=== PATIENT | male | born 1955 | race Caucasian/White ===

== ENCOUNTER → 2017-05-20 | Outpatient (CLI) | payer OTHER ==
[~2017-05-20] MED LIST: ACETAMINOPHEN650 M5 PO; ADVAIR 250-501 EACH INH; ASPIR 8181 MG PO; DUONEB 2.5-0.5 M3 ML INH; LISINOPRIL40 MG PO; LOPRESSOR25 PO; MUCINEX TA600 MG/TA2 PO; NICOTINE TRANSD14 M1 TD; NORVASC 5 MG TAB5 MG PO; PACERONE 200 M200 M1 PO; PREDNISOLONE 5 M5 MG; PREDNISONE 10 M10 M1 PO; PROAIR HFA8.5 GM INH; SIMVASTATIN20 MG PO; SIMVASTATIN5 MG PO; SPIRIVA INH; SYMBICORT160 MCG/4. INH; TOPROL XL50 MG PO; TYLENOL325 MG PO
--- NOTE | ~2017-05-20 | 2DMMODE ---
[facility] [employer] [place] [address] 2 D/M-MODE ECHOCARDIOGRAM Name: RAMY GIBSON Room #: REG [facility]#: [id number] Admission: 05/20/17 Attend Phys: Moises Acevedo, Discharge: Date of : 55 Date of Service: 05/20/17 1252 Report #: [id number] THIS REPORT FOR: //name// APPROVED REPORT Study performed: 05/20/2017 10:05:54 EXAM: Comprehensive 2D, Doppler, and color-flow Echocardiogram Patient Location: Out-Patient Room #: Echo lab Status: routine Other Information Study Quality: Good Indications COPD Hypertension/HDD SVT. 2D Dimensions RVDd: 42.10 mm LVEF(%): 65.60 (>50%) IVSd: 11.21 (7-11mm) LVOT Diam: 22.70 (18-24mm) LVDd: 51.72 mm PWd: 10.48 (7-11mm) LVDs: 32.96 (25-40mm) Aortic Root: 33.83 mm IVC: 28.00 mm Ding's LVEF: 65.60 % Volumes Left Atrial Volume (Systole) Single Plane 4CH: 46.23 mL Single Plane 2CH: 47.75 mL LA ESV Index: 27.00 mL/m2 Aortic Valve AoV Peak Amadou.: 1.39 m/s AO Peak Gr.: 7.69 mmHg LVOT Max P.06 mmHg LVOT Max V: 1.01 m/s AMRITA Vmax: 2.94 cm2 Mitral Valve E/A Ratio: 1.8 MV Decel. Time: 242.12 ms MV E Max Amadou.: 0.82 m/s MV A Amadou.: 0.45 m/s [facility] [place] [place] [address] 2 D/M-MODE ECHOCARDIOGRAM Name: RAMY GIBSON Room #: REG [facility]#: [id number] Admission: 05/20/17 Attend Phys: Moises Acevedo, Discharge: Date of : 55 Date of Service: 05/20/17 1252 Report #: [id number] MV PHT: 70.21 ms IVRT: 96.89 ms Pulmonary Valve PV Peak Amadou.: 0.84 m/s PV Peak Gr.: 2.82 mmHg Pulmonary Vein P Vein S: 0.46 m/s P Vein A: 0.22 m/s P Vein D: 0.39 m/s P Vein A Dur.: 106.1 msec P Vein S/D Ratio: 1.18 Tricuspid Valve TR Peak Amadou.: 2.48 m/s RAP Estimate: 10.00 mmHg TR Peak Gr.: 24.63 mmHg PA Pressure: 35.00 mmHg Left Ventricle The left ventricle is normal size. Very mild inferior hypokinesis, and normal wallmotion in other segments Mild concentric left ventricular hypertrophy. The left ventricular systolic function is normal. The left ventricular ejection fraction is within the normal range. LVEF is 50-55%. The left ventricular diastolic function is normal. Right Ventricle Right ventricle is at the upper limits of normal. The right ventricular systolic function is normal. Atria The left atrium size is normal. Right atrium is mildly dilated. Aortic Valve The aortic valve is normal in structure. No aortic regurgitation is present. There is no aortic valvular stenosis. Mitral Valve The mitral valve is normal in structure. There is no mitral valve regurgitation noted. No evidence of mitral valve stenosis. Tricuspid Valve The tricuspid valve is normal in structure. There is trace to mild tricuspid regurgitation. The right atrial pressure is estimated at 10 mmHg. There is mild pulmonary hypertension with an estimated PAP of 35 mmHg. [facility] [address] [place] [address] 2 D/M-MODE ECHOCARDIOGRAM Name: RAMY GIBSON Room #: REG [facility]#: [id number] Admission: 05/20/17 Attend Phys: Moises Acevedo, Discharge: Date of : 55 Date of Service: 05/20/17 1252 Report #: [id number] Pulmonic Valve The pulmonary valve is normal in structure. There is no pulmonic valvular regurgitation. Great Vessels The aortic root is normal in size. IVC is dilated and collapses >50% with inspiration. Pericardium There is no pericardial effusion. <Conclusion> The left ventricular systolic function is normal. LVEF is 50-55% Very mild inferior hypokinesis, and normal wall motion in other segments. No aortic regurgitation is present. There is no aortic valvular stenosis. There is no mitral valve regurgitation noted. No evidence of mitral valve stenosis. There is trace to mild tricuspid regurgitation. The right atrial pressure is estimated at 10 mmHg. There is mild pulmonary hypertension with an estimated PAP of 35 mmHg. <ELECTRONICALLY SIGNED> By: Moises Acevedo MD, FACC 05/20/17 1252 1252 1252 Moises Acevedo MD, FACC /INF
== END ==
LOC: CV 07:14
DX: I27.2 Other secondary pulmonary hypertension (principal); J44.9 Chronic obstructive pulmonary disease, unspecified; I47.1 Supraventricular tachycardia

== ENCOUNTER 2017-06-29 20:16 | Inpatient (IN) | payer OTHER ==
[~2017-06-29] VITALS: Ht 177.8 cm; Wt 80.7 kg
--- NOTE | ~2017-06-29 | EKG ---
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 No gross differences Electronically Signed On 06-30-2017 8:29:37 CDT by Arnav Adrian [email or web address] <ELECTRONICALLY SIGNED> By: Arnav Adrian MD, [facility] 06/30/17 0829 16 16 Arnav Adrian MD, [facility] /EPI
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
[2017-06-29 21:00] LABS: ABG SAMPLE TYPE ARTERIAL; BE(vivo) 1.3 mmol/L (-2 to +3); HCO3 30.7 mmol/L (22.0-26.0); LACTATE 1.22 mmol/L (0.5-2.0); O2(CT) 24.6 mL/dL (15.0-23.0); PCO2 67.7 mmHg (35.0-45.0); PO2 191.6 mmHg (80.0-100.0); pH 7.274 (7.360-7.450); sO2 99.1 % (92.0-98.0); tCO2 32.7 mmol/L (24.0-30.0)
[2017-06-29 21:01] LABS: Pressure Support 10 cm H20; STICK SITE R.RADIAL
[2017-06-29 22:12] LABS: ABG SAMPLE TYPE ARTERIAL; BE(vivo) 1.6 mmol/L (-2 to +3); HCO3 30.9 mmol/L (22.0-26.0); LACTATE 1.46 mmol/L (0.5-2.0); O2(CT) 24.1 mL/dL (15.0-23.0); O2Hb 95.9 % (92.0-98.0); PCO2 67.2 mmHg (35.0-45.0); PO2 123.6 mmHg (80.0-100.0); STICK SITE R.RADIAL; pH 7.281 (7.360-7.450); sO2 97.9 % (92.0-98.0)
[2017-06-29 22:13] LABS: HEMATOCRIT 48.9 % (42.0-52.0); HEMOGLOBIN 16.5 gm/dL (14.0-18.0); MCHC 33.9 g/dL (28.0-37.0); MCV 100.5 fL (80.0-100.0); PLATELET COUNT 201 thou/uL (150-400); RBC 4.86 mil/uL (4.50-6.00); RDW 12.8 % (10.5-14.5); WBC 13.3 thou/uL (4.0-11.0)
[2017-06-29 22:13] LABS: Pressure Support 9 cm H20
[2017-06-29 22:15] LABS: MANUAL DIFF YES
[2017-06-29 22:23] LABS: ANION GAP 7 mmol/L (7-16); BUN 20 mg/dL (7-18); CALCIUM 9.3 mg/dL (8.5-10.1); CHLORIDE 101 mmol/L (98-107); CO2 31 mmol/L (21-32); GLUCOSE 143 mg/dL (74-106); POTASSIUM 4.4 mmol/L (3.5-5.1); SODIUM 139 mmol/L (136-145)
[2017-06-29 22:27] LABS: APTT 22.4 Seconds (24.5-32.8); PROTIME 9.8 Seconds (9.3-11.4)
[2017-06-29 22:30] LABS: ALBUMIN 3.8 g/dL (3.4-5.0); ALKALINE PHOSPHATASE 71 U/L (46-116); MAGNESIUM 2.3 mg/dL (1.8-2.4); SGOT 14 U/L (15-37); SGPT 16 U/L (30-65); TOTAL BILIRUBIN 0.7 mg/dL (<0.1-1.0); TOTAL PROTEIN 7.2 g/dL (6.4-8.2); TROPONIN-I < 0.04 ng/mL (<0.04-0.07)
[2017-06-29 22:38] LABS: ABSOLUTE NEUTROPHILS 11.7 thou/uL (1.4-8.2); ANISOCYTOSIS 1+; TOTAL CELL COUNT 100
[2017-06-30] VITALS (18 sets, daily range): BP systolic 105–147; BP diastolic 83–104
[2017-06-30 09:16] LABS: ABG SAMPLE TYPE ARTERIAL; BE(vivo) 3.4 mmol/L (-2 to +3); HCO3 30.4 mmol/L (22.0-26.0); LACTATE 1.81 mmol/L (0.5-2.0); O2(CT) 21.3 mL/dL (15.0-23.0); O2Hb 92.3 % (92.0-98.0); PCO2 54.7 mmHg (35.0-45.0); PO2 73.3 mmHg (80.0-100.0); pH 7.363 (7.360-7.450); tCO2 32.1 mmol/L (24.0-30.0)
[2017-06-30 09:17] LABS: STICK SITE R.RADIALN
[2017-07-01 03:35] LABS: HEMATOCRIT 43.8 % (42.0-52.0); HEMOGLOBIN 15.2 gm/dL (14.0-18.0); MCH 34.5 pg (26.0-34.0); MCHC 34.7 g/dL (28.0-37.0); MCV 99.3 fL (80.0-100.0); RBC 4.41 mil/uL (4.50-6.00); RDW 12.3 % (10.5-14.5); WBC 13.2 thou/uL (4.0-11.0)
[2017-07-01 03:44] LABS: POTASSIUM 4.4 mmol/L (3.5-5.1)
[2017-07-01 04:17] VITALS: BP 123/78
[2017-07-01 07:18] LABS: ABG SAMPLE TYPE ARTERIAL; HCO3 30.9 mmol/L (22.0-26.0); LACTATE 1.45 mmol/L (0.5-2.0); PCO2 60.2 mmHg (35.0-45.0); PO2 76.4 mmHg (80.0-100.0); STICK SITE R.RADIAL; pH 7.328 (7.360-7.450); sO2 94.1 % (92.0-98.0); tCO2 32.7 mmol/L (24.0-30.0)
[2017-07-01 07:43] VITALS: BP 134/92
[2017-07-01 10:51] VITALS: BP 132/87
[2017-07-01 16:32] VITALS: BP 184/105
[2017-07-01 20:35] VITALS: BP 138/93
[2017-07-02 04:32] LABS: HEMATOCRIT 42.5 % (42.0-52.0); HEMOGLOBIN 14.6 gm/dL (14.0-18.0); MCH 34.2 pg (26.0-34.0); MCHC 34.4 g/dL (28.0-37.0); MCV 99.6 fL (80.0-100.0); RBC 4.26 mil/uL (4.50-6.00); RDW 12.6 % (10.5-14.5)
[2017-07-02 04:35] VITALS: BP 133/79
[2017-07-02 05:01] LABS: CALCIUM 8.8 mg/dL (8.5-10.1); CREATININE 0.9 mg/dL (0.7-1.3); POTASSIUM 4.8 mmol/L (3.5-5.1)
[2017-07-02 07:20] VITALS: BP 133/81
[2017-07-02 11:25] VITALS: BP 143/78
[2017-07-02 15:40] VITALS: BP 121/72
[2017-07-02 19:36] VITALS: BP 144/79
[2017-07-03 03:33] VITALS: BP 139/84
[2017-07-03 07:15] VITALS: BP 136/80
[2017-07-03 11:15] VITALS: BP 129/89
[2017-07-03 12:44] VITALS: BP 129/89
[2017-07-03 15:30] VITALS: BP 154/93
[2017-07-03 19:29] VITALS: BP 163/98
[2017-07-04 03:28] LABS: HEMATOCRIT 44.5 % (42.0-52.0); HEMOGLOBIN 14.9 gm/dL (14.0-18.0); MCH 33.9 pg (26.0-34.0); MCHC 33.6 g/dL (28.0-37.0); MCV 101.1 fL (80.0-100.0); RBC 4.4 mil/uL (4.50-6.00); RDW 12.6 % (10.5-14.5); WBC 10.8 thou/uL (4.0-11.0)
[2017-07-04 03:37] LABS: CALCIUM 8.8 mg/dL (8.5-10.1); CREATININE 0.9 mg/dL (0.7-1.3); POTASSIUM 4.6 mmol/L (3.5-5.1)
[2017-07-04 05:22] VITALS: BP 143/86
[2017-07-04 07:20] VITALS: BP 113/67
[2017-07-04 07:25] VITALS: BP 135/90
[2017-07-04] MEDS ORDERED: DOXYCYCLINE 10100 MG PO (09:19)
[2017-07-04] MEDS ORDERED: CEFDINIR300 MG PO (09:19)
[2017-07-04] MEDS ORDERED: DUONEB 2.5-0.5 M3 ML INH (09:20)
[2017-07-04] MEDS ORDERED: PREDNISONE 10 M10 MG PO (09:21)
[2017-07-04 10:33] VITALS: BP 129/89
[2017-07-04 12:05] VITALS: BP 129/89
== END 2017-07-04 12:07 | disposition home or self-care (01) | DRG 189 ==
LOC: ER 20:16 → 2N 23:14 → EROBS 23:14 → ICU 06-30 00:02 → 2N 06-30 11:28
PROVIDERS: Emergency Medicine; Hospitalist; Internal Medicine Pulmonary Disease
PROC: 5A09357 Assistance with Respiratory Ventilation, Less than 24 Consecutive Hours, Continuous Positive Airway Pressure (ICD-10-PCS; principal; 2017-06-30)
DX: J96.21 Acute and chronic respiratory failure with hypoxia (principal); J44.1 Chronic obstructive pulmonary disease with (acute) exacerbation; Z60.2 Problems related to living alone; K21.9 Gastro-esophageal reflux disease without esophagitis; I10 Essential (primary) hypertension; E78.00 Pure hypercholesterolemia, unspecified; I48.91 Unspecified atrial fibrillation; F17.210 Nicotine dependence, cigarettes, uncomplicated; J96.22 Acute and chronic respiratory failure with hypercapnia; Z79.82 Long term (current) use of aspirin; Z79.899 Other long term (current) drug therapy
CPT/HCPCS: 10081

== ENCOUNTER → 2018-10-06 | Outpatient (CLI) | payer OTHER ==
[~2018-10-06] MED LIST changes: +CEFDINIR300 MG PO; +DOXYCYCLINE 10100 MG PO; +PREDNISONE 10 M10 MG PO
== END ==
LOC: RAD 13:01
DX: J44.9 Chronic obstructive pulmonary disease, unspecified (principal)

== ENCOUNTER → 2018-12-30 | Outpatient (CLI) | payer OTHER | LOC: RAD 14:31 | DX: Z79.899 Other long term (current) drug therapy (principal) ==

== ENCOUNTER → 2019-07-19 | Outpatient (CLI) | payer OTHER ==
--- NOTE | 2019-07-21 08:34 | SLE ---
[facility] [place] [address] POLYSOMNOGRAPHY STUDY Name: PAIGERAMY Qureshi Room #: REG [facility]#: [id number] Admission: 07/19/19 Attend Phys: Estiven Ardon MD Discharge: Date of : 55 Report #: [id number] THIS REPORT FOR: //name// CC: [facility] physician/PCP Estiven Ardon MD DATE OF SERVICE: 07/19/2019 SLEEP STUDY. ATTENDING PHYSICIAN: Dr. Estiven Ardon The patient is a 64-year-old who weighs 199 pounds with a BMI of 28.6. The patient's Davenport score was 2. The patient underwent diagnostic sleep study performed at [facility]. During the night study, the patient spent 463 minutes in bed and slept for 297 minutes with a sleep efficiency of 64%, which was low. Sleep latency was 37 minutes with a REM latency of 136 minutes. Sleep architecture showed increased stage 1 and stage 2 sleep, absent slow wave and normal REM sleep. During the night study, the patient had 4 obstructive apneas, 2 central apneas, no mixed apneas and 41 hypopneas. The patient's apnea-hypopnea index was 9.5 per hour with a REM index of 23 per hour and a supine index of 14 per hour. EKG monitoring revealed average heart rate of 49 beats per minute with a maximum of 60 beats per minute. PLMS were seen at an index of 50 per hour and 7 per hour caused EEG arousals. Nocturnal oximetry study revealed an average oxygen saturation of 91% with lowest of 58%. 95 minutes were spent in oxygen saturation less than 89%. Nocturnal hypoxia was predominantly during REM sleep. The patient did not meet the criteria for CPAP initiation due to low AHI. IMPRESSION: 1. Mild sleep apnea-hypopnea syndrome with moderate increase during REM sleep. Total AHI 9.5 per hour with a REM AHI of 23 per hour. 2. Reduced sleep efficiency resulting from sleep maintenance insomnia. 3. Severe periodic limb movements at an index of 51 per hour and 7 per hour caused EEG arousals. 4. Nocturnal hypoxia secondary to obstructive sleep apnea. RECOMMENDATIONS: [facility] [address] [place] [address] POLYSOMNOGRAPHY STUDY Name: RAMY GIBSON Room #: REG [facility]#: [id number] Admission: 07/19/19 Attend Phys: Estiven Ardon MD Discharge: Date of : 55 Report #: [id number] 1. The patient would benefit from return to the sleep lab for CPAP titration study. Alternate treatment option would include use of oral appliance as recommended by the dentist. 2. Weight loss to the ideal body weight is also recommended. 3. Avoid HELPER MARBLE FINISHER depressants. 4. Cautioned regarding driving until symptoms of sleep apnea resolve with the above recommendation. 5. The patient also had reduced sleep efficiency resulting from insomnia. If this is a chronic condition, then it can also contribute to daytime somnolence and should be treated according to the etiology. 6. The patient has severe PLMs. The patient should also be further evaluated for symptoms of restless legs during the day. <ELECTRONICALLY SIGNED> By: Hieu Reid MD 07/21/19 0834 2202 2307 Hieu Reid MD /nt
== END ==
LOC: SLEEPLAB 19:05
DX: G47.33 Obstructive sleep apnea (adult) (pediatric) (principal); G47.30 Sleep apnea, unspecified; R09.02 Hypoxemia

== ENCOUNTER → 2019-07-22 | Outpatient (CLI) | payer OTHER ==
[~2019-07-22] MED LIST changes: +PREDNISONE 20 M20 MG PO; +ZPAK PO
--- NOTE | 2019-07-26 15:51 | SLE ---
[facility] [place] [address] POLYSOMNOGRAPHY STUDY Name: PAIGERAMY Qureshi Room #: REG [facility]#: [id number] Admission: 07/22/19 Attend Phys: Parth Ardon MD Discharge: Date of : 55 Report #: [id number] THIS REPORT FOR: //name// CC: [facility] physician/PCP PARTH Ardon DATE OF SERVICE: 07/23/2019 SLEEP STUDY ATTENDING PHYSICIAN: Dr. Parth Ardon. The patient is a 64-year-old who weighs 199 pounds with a BMI of 28.6. The patient had a previous sleep study and was found to have mild DEEPA with moderate increase during REM sleep. The patient was referred for in-lab titration study. During the night study, the patient spent 359 minutes in bed and slept for 154 minutes with a low sleep efficiency of 43%. Sleep latency was 15.8 minutes with a REM latency of 38 minutes, which was short. Sleep architecture showed increased stage 1 and stage 2 sleep, normal slow wave and reduced REM sleep. EKG monitoring revealed an average heart rate of 49 beats per minute. No sustained arrhythmias observed. PLMs were seen at an index of 59 per hour and 8 per hour caused EEG arousals. The patient was started on CPAP at 7 cm water and titrated up to 11 cm water. At the final pressure, the patient slept for 20 minutes. The patient had supine sleep, but no REM sleep. The patient's AHI was reduced to 2.9 per hour and oxygen saturation remained above 89%. The patient had a REM sleep at a pressure of 9 cm water. Twelve minutes of REM sleep was observed. AHI was 5.6 per hour. IMPRESSION: 1. Sleep apnea diagnosed by previous sleep study. 2. Severe periodic limb movements. 3. Severely reduced sleep efficiency of 43%, resulting from sleep maintenance insomnia. RECOMMENDATIONS: 1. CPAP at 11 cm water should be used on a nightly basis. I would recommend him to have a followup download data to make sure AHI remains less than 5 per hour since REM sleep was not seen on the final pressure. 2. Avoid WATER CONTROL STATION ENGINEER depressants. 3. Cautioned regarding driving until symptoms of sleep apnea resolve with the use of CPAP. [facility] [address] [place] [address] POLYSOMNOGRAPHY STUDY Name: RAMY GIBSON Room #: [facility]#: [id number] Admission: 07/22/19 Attend Phys: Parth Ardon MD Discharge: Date of : 55 Report #: [id number] 4. If the patient's insomnia is chronic, then it should be further evaluated and treated according to the etiology. 5. The patient should also be further evaluated for symptoms of restless legs during the day. <ELECTRONICALLY SIGNED> By: Hieu Reid MD 07/26/19 1551 1215 1452 Hieu Reid MD /nt
== END ==
LOC: SLEEPLAB 21:02
DX: G47.30 Sleep apnea, unspecified (principal); G47.61 Periodic limb movement disorder

== ENCOUNTER 2019-09-14 16:29 | Emergency (ER) | payer OTHER ==
[~2019-09-14] VITALS: Ht 177.8 cm; Wt 88.5 kg
[~2019-09-14 16:29] MED LIST changes: -PREDNISONE 20 M20 MG PO; -ZPAK PO
[2019-09-14 17:25] LABS: ABSOLUTE NEUTROPHILS 4.1 thou/uL (1.4-8.2); BASOPHILS 0.8 % (0.0-2.0); EOSINOPHILS 0.3 % (0.0-3.0); HEMATOCRIT 38.3 % (42.0-52.0); HEMOGLOBIN 12.6 gm/dL (14.0-18.0); LYMPHOCYTES 18.7 % (24.0-44.0); MCH 35.3 pg (26.0-34.0); MCHC 32.8 g/dL (28.0-37.0); MCV 107.8 fL (80.0-100.0); MONOCYTES 8.9 % (1.0-8.0); PLATELET COUNT 149 thou/uL (150-400); POLYS 71.3 % (36.0-66.0); RBC 3.56 mil/uL (4.50-6.00); RDW 13.8 % (10.5-14.5); WBC 5.7 thou/uL (4.0-11.0)
[2019-09-14 17:28] LABS: ANION GAP 9 mmol/L (7-16); BUN 14 mg/dL (7-18); CALCIUM 9.3 mg/dL (8.5-10.1); CHLORIDE 107 mmol/L (98-107); CO2 26 mmol/L (21-32); CREATININE 1.1 mg/dL (0.7-1.3); GLUCOSE 95 mg/dL (74-106); SODIUM 142 mmol/L (136-145)
[2019-09-14 17:39] LABS: ALBUMIN 3.8 g/dL (3.4-5.0); DIRECT BILIRUBIN 0.2 mg/dL (<0.1-0.3); SGOT 21 U/L (15-37); SGPT 18 U/L (30-65); TOTAL BILIRUBIN 1.1 mg/dL (<0.1-1.0); TOTAL PROTEIN 6.5 g/dL (6.4-8.2); TROPONIN-I <0.06 ng/mL (<0.06)
[2019-09-14 18:16] LABS: ANISOCYTOSIS 1+; PLATELET ESTIMATE NORMAL; POLYCHROMASIA SLIGHT
[2019-09-14 18:17] LABS: MACROCYTES 1+
[2019-09-14] MEDS ORDERED: ZPAK PO (19:19)
[2019-09-14] MEDS ORDERED: PREDNISONE 20 M20 MG PO (19:19)
[2019-09-14 20:15] VITALS: BP 122/74
--- NOTE | 2019-09-16 12:51 | EKG ---
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 Animal: AIMEE : 1955 Requested By: Dulce Cifuentes Order Number: [id number] MD: Arnav Adrian Measurements Intervals [place] Rate: 72 P: 23 [place]: 147 QRS: 67 QRSD: 106 T: 54 QT: 410 QTc: 449 Interpretive Statements Sinus rhythm RSR' in V1 or V2, right VCD Compared to ECG 06/29/2017 20:17:45 Sinus tachycardia no longer present Electronically Signed On 09-16-2019 12:51:29 ANTIQUER by Arnav Adrian [email or web address] <ELECTRONICALLY SIGNED> By: Arnav Adrian MD, [facility] 09/16/19 1251 1635 163 Arnav Adrian MD, FACC /EPI
== END 2019-09-14 19:55 | disposition home or self-care (01) ==
LOC: ER 16:29
PROVIDERS: Emergency Medicine
DX: R06.02 Shortness of breath (principal); R05 Cough; I10 Essential (primary) hypertension; I48.91 Unspecified atrial fibrillation; E78.00 Pure hypercholesterolemia, unspecified; J44.9 Chronic obstructive pulmonary disease, unspecified; K21.9 Gastro-esophageal reflux disease without esophagitis; F17.210 Nicotine dependence, cigarettes, uncomplicated

== ENCOUNTER → 2019-09-14 | Outpatient (CLI) | payer OTHER | LOC: RAD 15:40 → LABMALL 15:40 | DX: R00.2 Palpitations (principal); Z79.899 Other long term (current) drug therapy ==

== ENCOUNTER → 2020-08-15 | Outpatient (CLI) | payer OTHER ==
[~2020-08-15] MED LIST changes: +PREDNISONE 20 M20 MG PO; +ZPAK PO
[2020-08-15 11:19] LABS: ALBUMIN 4.1 g/dL (3.4-5.0); DIRECT BILIRUBIN 0.2 mg/dL (<0.1-0.2); TOTAL BILIRUBIN 0.9 mg/dL (0.2-1.0); TOTAL PROTEIN 7.3 g/dL (6.4-8.2)
== END ==
LOC: RAD 10:37
PROVIDERS: ATTEND Internal Medicine Cardiovascular Disease
DX: I48.3 Typical atrial flutter (principal); J98.4 Other disorders of lung; Z79.899 Other long term (current) drug therapy

== ENCOUNTER → 2020-11-06 | Outpatient (CLI) | payer OTHER | LOC: RAD 10:30 | PROVIDERS: ATTEND Family Medicine | DX: M43.12 Spondylolisthesis, cervical region (principal); M51.36 Other intervertebral disc degeneration, lumbar region; M48.061 Spinal stenosis, lumbar region without neurogenic claudication ==

== ENCOUNTER → 2021-03-21 | Outpatient (CLI) | payer OTHER ==
[2021-03-21 14:52] LABS: ALBUMIN 4.3 g/dL (3.4-5.0); CHOLESTEROL 159 mg/dL (<200); DIRECT BILIRUBIN 0.3 mg/dL (<0.1-0.2); HDL CHOLESTEROL 72 mg/dL (>40); LDL CHOLESTEROL 73 mg/dL (<100); SGOT 13 U/L (15-37); SGPT 20 U/L (30-65); TC:HDL 2.2 Ratio (Not establshd); TOTAL BILIRUBIN 1.2 mg/dL (0.2-1.0); TRIGLYCERIDE 71 mg/dL (<150); VLDL 14 mg/dL (<40)
== END ==
LOC: RAD 14:08
PROVIDERS: ATTEND Internal Medicine Cardiovascular Disease
DX: I48.3 Typical atrial flutter (principal); E78.00 Pure hypercholesterolemia, unspecified; R06.02 Shortness of breath; J84.9 Interstitial pulmonary disease, unspecified